=== PATIENT | female | born 1985 | race Caucasian/White ===

== ENCOUNTER 2018-09-25 23:54 | Emergency (ER) | payer MEDICAID ==
[~2018-09-25] VITALS: Ht 162.6 cm; Wt 65.0 kg
[~2018-09-25 23:54] MED LIST: NAPR-1193 PO
[2018-09-26] MEDS ORDERED: IBUPROFEN 400 MG TABLET PO ONE (01:00)
[2018-09-26] MEDS ORDERED: PERTUSS(ACELL),DIPH,TET VAC/PF 0.5 ML VIAL IM ONE (01:00)
[2018-09-26 01:15] VITALS: BP 133/69
== END 2018-09-26 01:23 | disposition home or self-care (01) ==
LOC: EMS 23:56
DX: S61.245A Puncture wound with foreign body of left ring finger without damage to nail, initial encounter (principal); J45.909 Unspecified asthma, uncomplicated; Z23 Encounter for immunization; W27.8XXA Contact with other nonpowered hand tool, initial encounter; Y93.E9 Activity, other interior property and clothing maintenance; Y92.89 Other specified places as the place of occurrence of the external cause; Y99.8 Other external cause status
CPT/HCPCS: 90471; 90715

== ENCOUNTER 2018-10-30 01:51 | Inpatient (IN) | payer MEDICAID ==
[~2018-10-30] VITALS: Ht 157.5 cm; Wt 65.0 kg
[2018-10-30 03:47] LABS: APPEARANCE,URINE CLOUDY (CLEAR); BILIRUBIN,URINE NEGATIVE (NEGATIVE); GLUCOSE, URINE (UA) NEGATIVE (NEGATIVE); KETONES,URINE NEGATIVE (NEGATIVE); LEUKOCYTE ESTERASE ,URINE LARGE (NEGATIVE); NITRATE,URINE NEGATIVE (NEGATIVE); OCCULT BLOOD,URINE NEGATIVE (NEGATIVE); PH,URINE 7.5 (5.0-8.0); PROTEIN,URINE NEGATIVE (NEGATIVE); UROBILINOGEN,URINE 0.2 mg/dL (<=1.0)
[2018-10-30 03:56] LABS: BACTERIA,URINE Few /HPF (None Seen); SQUAMOUS EPITHELIAL CELL,UR Many /LPF (None Seen)
[2018-10-30 04:01] LABS: BASOPHILS % (AUTO) 0.8 % (0.0-2.0); EOSINOPHILS % (AUTO) 2.2 % (1.0-6.0); HEMATOCRIT 42.4 % (36-46); HEMOGLOBIN 14.3 g/dL (12.0-16.0); LYMPHOCYTES # (AUTO) 2.9 K/uL (1.0-4.8); LYMPHOCYTES % (AUTO) 26.7 % (22.0-44.0); MEAN CORPUSCULAR HEMOGLOBIN 31.7 pg (26.0-34.0); MEAN CORPUSCULAR HGB CONC 33.6 G/dL (31.0-37.0); MEAN CORPUSCULAR VOLUME 94 fL (80-100); MONOCYTES # (AUTO) 0.6 K/uL (0.1-1.0); MONOCYTES % (AUTO) 5.4 % (2.0-9.0); NEUTROPHILS % (AUTO) 64.9 % (40.0-70.0); PLATELET COUNT (AUTO) 256 K/uL (150-450); RED CELL DISTRIBUTION WIDTH 13.3 % (11.5-14.5)
[2018-10-30 04:06] LABS: ANION GAP 9 mmol/L (8-16); CALCIUM, TOTAL 9.4 mg/dL (8.8-10.5); CARBON DIOXIDE 27 mmol/L (22-29); CHLORIDE 102 mmol/L (98-107); CREATININE 0.91 mg/dL (0.60-1.30); GLOMERULAR FILTR. RATE CALC > 60 mL/min (>60); GLUCOSE,RANDOM 124 mg/dL (70-110); POTASSIUM 3.9 mmol/L (3.5-5.1); SODIUM SERUM 138 mmol/L (136-145); UREA NITROGEN, BLOOD 11 mg/dL (7-18)
[2018-10-30 04:21] LABS: ALANINE AMINOTRANSFERASE 97 U/L (12-78); ALBUMIN 3.6 g/dL (3.4-5.0); ALKALINE PHOSPHATASE 103 U/L (46-116); ASPARTATE AMINOTRANSFERASE 46 U/L (15-37); BILIRUBIN,TOTAL 0.2 mg/dL (0.1-1.0); HCG,QUANTITATIVE < 1 mIU/mL (0-6); TOTAL PROTEIN, SERUM 7.5 g/dL (6.4-8.2)
[2018-10-30] MEDS ORDERED: SODIUM CHLORIDE 0.9% 100 ML ONE (04:28)
[2018-10-30] MEDS ORDERED: IOVERSOL 350 MG/ML 100 ML VIAL ONE (04:28)
[2018-10-30] MEDS ORDERED: ONDANSETRON HCL 4 MG/2 ML VIAL IVP ONE ×2 (04:30→05:45)
[2018-10-30] MEDS ORDERED: BARIUM SULFATE 0.1% SUSPENSION 450 ML BOTTLE PO ONE (04:30)
[2018-10-30] MEDS ORDERED: MORPHINE SULFATE 4 MG/ML SYRINGE IVP ONE (04:30)
[2018-10-30] MEDS ORDERED: HYDROmorphone 2 MG/ML SYRINGE IVP ONE ×2 (05:45→06:15)
[2018-10-30] MEDS ORDERED: LORazepam 2 MG/ML VIAL IVP ONE (06:30)
[2018-10-30] MEDS ORDERED: CefTRIAXone 1 GM/DEXTROSE 50 ML IV ONE (06:30)
[2018-10-30] MEDS ORDERED: TETRACAINE/BENZOCAINE/BUTAMBEN 32 GM GEL TP ONE (06:30)
[2018-10-30] MEDS ORDERED: ACETAMINOPHEN 325 MG TABLET PO PRN (07:45)
[2018-10-30] MEDS ORDERED: POTASSIUM CHL 20 MEQ/D5-0.45NS 1,000 ML IV ONE (07:45)
[2018-10-30] MEDS ORDERED: HYDROmorphone 2 MG/ML SYRINGE IVP PRN (07:45)
[2018-10-30] MEDS ORDERED: 0.9% SODIUM CHLORIDE 10 ML SYRINGE IVP PRN ×2 (07:45→12:00)
[2018-10-30] MEDS ORDERED: ONDANSETRON HCL 4 MG/2 ML VIAL IVP PRN (07:45)
[2018-10-30] MEDS ORDERED: SODIUM PHOS/SODIUM BIPHOS 133 ML ENEMA PR ONE (09:00)
[2018-10-30] MEDS ORDERED: LORazepam 2 MG/ML VIAL IM PRN (12:00)
[2018-10-30 12:16] VITALS: BP 100/57
[2018-10-30 16:10] VITALS: BP 109/54
[2018-10-30] MEDS: DEXTROSE 5%-0.45% SODIUM CHL 1,000 ML IV SCH (18:20)
[2018-10-30 19:38] VITALS: BP 106/61
[2018-10-30 23:10] VITALS: BP 114/57
[2018-10-31] MEDS: HYDROmorphone 2 MG/ML SYRINGE IVP PRN ×3 (00:31→19:07)
[2018-10-31 04:53] VITALS: BP 99/56
[2018-10-31] MEDS: DEXTROSE 5%-0.45% SODIUM CHL 1,000 ML IV SCH ×2 (05:02→20:00)
[2018-10-31] MEDS: CefTRIAXone 1 GM/DEXTROSE 50 ML IV SCH (05:05)
[2018-10-31 06:19] LABS: BASOPHILS % (AUTO) 0.4 % (0.0-2.0); EOSINOPHILS % (AUTO) 1.8 % (1.0-6.0); HEMATOCRIT 38.9 % (36-46); LYMPHOCYTES # (AUTO) 2.2 K/uL (1.0-4.8); LYMPHOCYTES % (AUTO) 25.7 % (22.0-44.0); MEAN CORPUSCULAR HEMOGLOBIN 31.6 pg (26.0-34.0); MEAN CORPUSCULAR HGB CONC 33.4 G/dL (31.0-37.0); MEAN CORPUSCULAR VOLUME 95 fL (80-100); MONOCYTES # (AUTO) 0.7 K/uL (0.1-1.0); MONOCYTES % (AUTO) 7.5 % (2.0-9.0); NEUTROPHILS # (AUTO) 5.6 K/uL (1.8-7.7); NEUTROPHILS % (AUTO) 64.6 % (40.0-70.0); PLATELET COUNT (AUTO) 232 K/uL (150-450); RED BLOOD CELL COUNT(AUTO) 4.11 MIL/uL (4.00-5.20); RED CELL DISTRIBUTION WIDTH 12.9 % (11.5-14.5)
[2018-10-31 06:21] LABS: ANION GAP 6 mmol/L (8-16); CALCIUM, TOTAL 8.6 mg/dL (8.8-10.5); CARBON DIOXIDE 29 mmol/L (22-29); CHLORIDE 102 mmol/L (98-107); CREATININE 0.84 mg/dL (0.60-1.30); GLOMERULAR FILTR. RATE CALC > 60 mL/min (>60); GLUCOSE,RANDOM 93 mg/dL (70-110); POTASSIUM 3.6 mmol/L (3.5-5.1); SODIUM SERUM 137 mmol/L (136-145); UREA NITROGEN, BLOOD 6 mg/dL (7-18)
[2018-10-31 07:58] VITALS: BP 91/51
[2018-10-31] MEDS ORDERED: EPINEPHrine 1:10,000 [1 MG/10 ML] SYRINGE ONE (09:41)
[2018-10-31] MEDS ORDERED: SODIUM CHLORIDE 0.9% 1,000 ML IV ONE (09:41)
[2018-10-31] MEDS ORDERED: PANTOPRAZOLE SODIUM 40 MG/VIAL IVP SCH (12:00)
[2018-10-31 12:01] VITALS: BP 102/50
[2018-10-31] MEDS: FAMOTIDINE 10 MG/ML 2 ML VIAL IVP SCH (12:55)
[2018-10-31] MEDS: POLYETHYLENE GLYCOL 3350 17 GM PACKET PO SCH ×2 (12:55→20:14)
[2018-10-31] MEDS: ONDANSETRON HCL 4 MG/2 ML VIAL IVP PRN (12:57)
[2018-10-31 15:43] VITALS: BP 95/52
[2018-10-31 19:20] VITALS: BP 100/55
[2018-10-31 23:04] VITALS: BP 95/50
[2018-11-01] MEDS: HYDROmorphone 2 MG/ML SYRINGE IVP PRN ×2 (01:02→12:17)
[2018-11-01] MEDS: DEXTROSE 5%-0.45% SODIUM CHL 1,000 ML IV SCH (01:30)
[2018-11-01 04:21] VITALS: BP 120/58
[2018-11-01] MEDS: CefTRIAXone 1 GM/DEXTROSE 50 ML IV SCH (05:46)
[2018-11-01 07:35] VITALS: BP 100/63
[2018-11-01] MEDS ORDERED: BARIUM SULFATE 0.1% SUSPENSION 450 ML BOTTLE ONE (07:57)
[2018-11-01] MEDS ORDERED: GLUCAGON,HUMAN RECOMBINANT 1 MG VIAL IVP ONE (08:45)
[2018-11-01] MEDS: POLYETHYLENE GLYCOL 3350 17 GM PACKET PO SCH ×2 (09:00→20:10)
[2018-11-01] MEDS ORDERED: IOVERSOL 350 MG/ML 150 ML VIAL ONE (09:43)
[2018-11-01] MEDS ORDERED: SODIUM CHLORIDE 0.9% 100 ML ONE (09:43)
[2018-11-01 11:20] VITALS: BP 103/55
[2018-11-01 15:39] VITALS: BP 118/68
[2018-11-01] MEDS: FAMOTIDINE 10 MG/ML 2 ML VIAL IVP SCH (16:34)
[2018-11-01 19:55] VITALS: BP 101/61
[2018-11-01 23:15] VITALS: BP 95/49
[2018-11-02] MEDS ORDERED: LIDOCAINE/PF 2% 5 ML VIAL IM ONE (00:28)
[2018-11-02] MEDS ORDERED: PROPOFOL 1% 20 ML VIAL IVP ONE (00:28)
[2018-11-02] MEDS: HYDROmorphone 2 MG/ML SYRINGE IVP PRN ×2 (03:37→12:08)
[2018-11-02 04:51] VITALS: BP 111/76
[2018-11-02] MEDS: CefTRIAXone 1 GM/DEXTROSE 50 ML IV SCH (05:42)
[2018-11-02] MEDS: ONDANSETRON HCL 4 MG/2 ML VIAL IVP PRN (05:49)
[2018-11-02] MEDS: FAMOTIDINE 10 MG/ML 2 ML VIAL IVP SCH (08:03)
[2018-11-02] MEDS: POLYETHYLENE GLYCOL 3350 17 GM PACKET PO SCH (08:03)
[2018-11-02 08:12] VITALS: BP 94/57
[2018-11-02 12:14] VITALS: BP 96/52
[2018-11-02] MEDS ORDERED: SODIUM CHLORIDE 0.9% 500 ML IV ONE (12:14)
[2018-11-02] MEDS ORDERED: FAMO20 PO (17:40)
[2018-11-02] MEDS ORDERED: POLY238P2 PO (17:41)
== END 2018-11-02 18:52 | disposition home or self-care (01) | DRG 241 ==
LOC: EMS 01:52 → 4E 08:04
PROVIDERS: ADMIT Internal Medicine; ATTEND Internal Medicine
PROC: 0DB68ZX Excision of Stomach, Via Natural or Artificial Opening Endoscopic, Diagnostic (ICD-10-PCS; 2018-10-31)
PROC: 0DB98ZX Excision of Duodenum, Via Natural or Artificial Opening Endoscopic, Diagnostic (ICD-10-PCS; principal; 2018-10-31 10:30)
DX: K29.60 Other gastritis without bleeding (principal); K56.609 Unspecified intestinal obstruction, unspecified as to partial versus complete obstruction; K31.84 Gastroparesis; A59.01 Trichomonal vulvovaginitis; J45.909 Unspecified asthma, uncomplicated; F32.9 Major depressive disorder, single episode, unspecified; K44.9 Diaphragmatic hernia without obstruction or gangrene; K52.9 Noninfective gastroenteritis and colitis, unspecified; N39.0 Urinary tract infection, site not specified
CPT/HCPCS: 74177; 87086; 88305; 88312; 88313; G0378; J0171; J0696; J1170; J1610; J2060; J2270; J2405; J2704; J3480; J3490; J7030; J7040; J7050

== ENCOUNTER 2018-11-03 03:35 | Emergency (ER) | payer MEDICAID ==
[~2018-11-03] VITALS: Ht 157.5 cm; Wt 75.0 kg
[~2018-11-03 03:35] MED LIST changes: +FAMO20 PO; -NAPR-1193 PO; +POLY238P2 PO
[2018-11-03 04:26] VITALS: BP 110/64
[2018-11-03] MEDS ORDERED: DiphenhydrAMINE HCL 25 MG CAPSULE PO ONE (04:30)
== END 2018-11-03 04:55 | disposition home or self-care (01) ==
LOC: EMS 03:35
DX: L25.9 Unspecified contact dermatitis, unspecified cause (principal); J45.909 Unspecified asthma, uncomplicated; Z98.51 Tubal ligation status; Z90.49 Acquired absence of other specified parts of digestive tract

== ENCOUNTER 2019-01-17 22:43 | Emergency (ER) | payer MEDICAID ==
[~2019-01-17] VITALS: Ht 165.1 cm; Wt 68.2 kg
[2019-01-18 00:56] VITALS: BP 121/73
[2019-01-18] MEDS ORDERED: KETOROLAC TROMETHAMINE 60 MG/2 ML VIAL IM ONE (01:15)
== END 2019-01-18 01:22 | disposition home or self-care (01) ==
LOC: EMS 22:44
DX: S92.425A Nondisplaced fracture of distal phalanx of left great toe, initial encounter for closed fracture (principal); W18.40XA Slipping, tripping and stumbling without falling, unspecified, initial encounter; Y93.02 Activity, running; Y92.89 Other specified places as the place of occurrence of the external cause; Y99.8 Other external cause status
CPT/HCPCS: 73630; 81025; 96372; 99283; J1885

== ENCOUNTER 2019-04-21 14:50 | Emergency (ER) | payer MEDICAID ==
[~2019-04-21] VITALS: Ht 165.1 cm; Wt 70.0 kg
[2019-04-21] MEDS ORDERED: SODIUM CHLORIDE 0.9% 2,100 ML IV ONE (16:40)
[2019-04-21] MEDS ORDERED: 0.9% SODIUM CHLORIDE 10 ML SYRINGE IVP PRN (16:45)
[2019-04-21] MEDS ORDERED: ACETAMINOPHEN 500 MG TABLET PO ONE (16:45)
[2019-04-21 17:10] LABS: BASOPHILS % (AUTO) 0.4 % (0.0-2.0); EOSINOPHILS % (AUTO) 0.2 % (1.0-6.0); HEMATOCRIT 39.8 % (36-46); HEMOGLOBIN 13.5 g/dL (12.0-16.0); LYMPHOCYTES # (AUTO) 0.5 K/uL (1.0-4.8); LYMPHOCYTES % (AUTO) 8.2 % (22.0-44.0); MEAN CORPUSCULAR HEMOGLOBIN 31.8 pg (26.0-34.0); MEAN CORPUSCULAR VOLUME 93 fL (80-100); MONOCYTES # (AUTO) 0.6 K/uL (0.1-1.0); MONOCYTES % (AUTO) 9.3 % (2.0-9.0); NEUTROPHILS # (AUTO) 5.1 K/uL (1.8-7.7); NEUTROPHILS % (AUTO) 81.9 % (40.0-70.0); PLATELET COUNT (AUTO) 232 K/uL (150-450); RED BLOOD CELL COUNT(AUTO) 4.26 MIL/uL (4.00-5.20); RED CELL DISTRIBUTION WIDTH 13.1 % (11.5-14.5)
[2019-04-21 17:11] LABS: APPEARANCE,URINE CLEAR (CLEAR); BILIRUBIN,URINE NEGATIVE (NEGATIVE); GLUCOSE, URINE (UA) NEGATIVE (NEGATIVE); KETONES,URINE NEGATIVE (NEGATIVE); LEUKOCYTE ESTERASE ,URINE NEGATIVE (NEGATIVE); NITRATE,URINE NEGATIVE (NEGATIVE); OCCULT BLOOD,URINE NEGATIVE (NEGATIVE); PH,URINE 7.5 (5.0-8.0); PROTEIN,URINE NEGATIVE (NEGATIVE); UROBILINOGEN,URINE 0.2 mg/dL (<=1.0)
[2019-04-21 17:23] LABS: ANION GAP 12 mmol/L (8-16); CALCIUM, TOTAL 8.9 mg/dL (8.8-10.5); CARBON DIOXIDE 24 mmol/L (22-29); CHLORIDE 100 mmol/L (98-107); CREATININE 0.93 mg/dL (0.60-1.30); GLOMERULAR FILTR. RATE CALC > 60 mL/min (>60); GLUCOSE,RANDOM 96 mg/dL (70-110); POTASSIUM 3.9 mmol/L (3.5-5.1); SODIUM SERUM 136 mmol/L (136-145); UREA NITROGEN, BLOOD 8 mg/dL (7-18)
[2019-04-21 17:29] LABS: ALANINE AMINOTRANSFERASE 80 U/L (12-78); ALBUMIN 3.8 g/dL (3.4-5.0); ALKALINE PHOSPHATASE 109 U/L (46-116); ASPARTATE AMINOTRANSFERASE 55 U/L (15-37); BILIRUBIN,TOTAL 0.4 mg/dL (0.1-1.0); TOTAL PROTEIN, SERUM 7.5 g/dL (6.4-8.2)
[2019-04-21 17:30] LABS: LACTIC ACID 1.9 mmol/L (0.4-2.0)
[2019-04-21] MEDS ORDERED: KETOROLAC TROMETHAMINE 30 MG/ML VIAL IVP ONE (18:00)
[2019-04-21 18:59] LABS: INFLUENZA TYPE A NEGATIVE FOR TYPE A (NEGATIVE); INFLUENZA TYPE B POSITIVE FOR TYPE B (NEGATIVE)
[2019-04-21] MEDS ORDERED: OSELTAMIVIR PHOSPHATE 75 MG CAPSULE PO ONE (19:15)
[2019-04-21 19:32] VITALS: BP 100/53
== END 2019-04-21 19:54 | disposition home or self-care (01) ==
LOC: EMS 14:51
DX: J10.1 Influenza due to other identified influenza virus with other respiratory manifestations (principal); F41.9 Anxiety disorder, unspecified; J45.909 Unspecified asthma, uncomplicated; Z90.89 Acquired absence of other organs
CPT/HCPCS: 36415; 71045; 80053; 81003; 81025; 83605; 85025; 85610; 87040; 87804; 93005; 96374; 99285; J1885; J7030

== ENCOUNTER 2021-02-01 05:19 | Emergency (ER) | payer MEDICAID ==
[~2021-02-01] VITALS: Ht 157.5 cm; Wt 63.6 kg
[2021-02-01 05:30] VITALS: BP 131/62
[2021-02-01] MEDS ORDERED: OMEP20 PO (05:34)
== END 2021-02-01 06:44 | disposition left against medical advice (07) ==
LOC: EMS 05:20
DX: R10.9 Unspecified abdominal pain (principal); Z53.21 Procedure and treatment not carried out due to patient leaving prior to being seen by health care provider

== ENCOUNTER 2021-04-15 01:43 | Emergency (ER) | payer MEDICAID ==
[~2021-04-15] VITALS: Ht 152.4 cm; Wt 72.4 kg
[~2021-04-15 01:43] MED LIST changes: -FAMO20 PO; +OMEP20 PO; -POLY238P2 PO
[2021-04-15 02:01] LABS: APPEARANCE,URINE CLEAR (CLEAR); BILIRUBIN,URINE NEGATIVE (NEGATIVE); GLUCOSE, URINE (UA) NEGATIVE (NEGATIVE); KETONES,URINE NEGATIVE (NEGATIVE); LEUKOCYTE ESTERASE ,URINE NEGATIVE (NEGATIVE); NITRATE,URINE NEGATIVE (NEGATIVE); OCCULT BLOOD,URINE NEGATIVE (NEGATIVE); PROTEIN,URINE NEGATIVE (NEGATIVE); UROBILINOGEN,URINE 0.2 mg/dL (<=1.0)
[2021-04-15 02:05] LABS: BACTERIA,URINE None Seen /HPF (None Seen); RBC,URINE None Seen /HPF (0-2); SQUAMOUS EPITHELIAL CELL,UR Few /LPF (None Seen); WBC,URINE 0-2 /HPF (0-5)
[2021-04-15 02:49] LABS: BASOPHILS % (AUTO) 0.5 % (0.0-2.0); HEMATOCRIT 40.8 % (36-46); HEMOGLOBIN 14.3 g/dL (12.0-16.0); LYMPHOCYTES # (AUTO) 2.9 K/uL (1.0-4.8); MEAN CORPUSCULAR HEMOGLOBIN 32.2 pg (26.0-34.0); MEAN CORPUSCULAR HGB CONC 34.9 G/dL (31.0-37.0); MEAN CORPUSCULAR VOLUME 92 fL (80-100); MONOCYTES # (AUTO) 0.7 K/uL (0.1-1.0); MONOCYTES % (AUTO) 7.6 % (2.0-9.0); NEUTROPHILS # (AUTO) 5.3 K/uL (1.8-7.7); NEUTROPHILS % (AUTO) 57.9 % (40.0-70.0); PLATELET COUNT (AUTO) 285 K/uL (150-450); RED BLOOD CELL COUNT(AUTO) 4.43 MIL/uL (4.00-5.20); RED CELL DISTRIBUTION WIDTH 13.2 % (11.5-14.5)
[2021-04-15 03:08] LABS: ANION GAP 8 mmol/L (8-16); CALCIUM, TOTAL 9.2 mg/dL (8.8-10.5); CARBON DIOXIDE 29 mmol/L (22-29); CHLORIDE 106 mmol/L (98-107); CREATININE 0.87 mg/dL (0.60-1.30); GLOMERULAR FILTR. RATE CALC > 60 mL/min (>60); GLUCOSE,RANDOM 108 mg/dL (70-110); POTASSIUM 4.4 mmol/L (3.5-5.1); SODIUM SERUM 143 mmol/L (136-145); UREA NITROGEN, BLOOD 15 mg/dL (7-18)
[2021-04-15 03:19] LABS: ALANINE AMINOTRANSFERASE 53 U/L (12-78); ALBUMIN 3.7 g/dL (3.4-5.0); ALKALINE PHOSPHATASE 99 U/L (46-116); ASPARTATE AMINOTRANSFERASE 17 U/L (15-37); BILIRUBIN,TOTAL 0.2 mg/dL (0.1-1.0); HCG,QUANTITATIVE < 1 mIU/mL (0-6); LIPASE 120 U/L (73-393); TOTAL PROTEIN, SERUM 7.7 g/dL (6.4-8.2)
[2021-04-15] MEDS ORDERED: KETOROLAC TROMETHAMINE 30 MG/ML VIAL IM ONE (03:45)
[2021-04-15 06:30] VITALS: BP 118/67
== END 2021-04-15 06:30 | disposition home or self-care (01) ==
LOC: EMS 01:47
DX: N20.0 Calculus of kidney (principal); J45.909 Unspecified asthma, uncomplicated; Z90.89 Acquired absence of other organs
CPT/HCPCS: 36415; 74176; 80053; 81001; 83690; 84702; 85025; 96372; 99284; J1885

== ENCOUNTER 2021-05-23 01:15 | Emergency (ER) | payer MEDICAID ==
[~2021-05-23] VITALS: Ht 157.5 cm; Wt 72.7 kg
[2021-05-23 02:05] VITALS: BP 122/78
== END 2021-05-23 03:21 | disposition home or self-care (01) ==
LOC: EMS 01:16
DX: H69.91 Unspecified Eustachian tube disorder, right ear (principal); J02.9 Acute pharyngitis, unspecified
CPT/HCPCS: 99282; Z7502

== ENCOUNTER 2022-07-23 17:35 | Emergency (ER) | payer MEDICAID ==
[~2022-07-23] VITALS: Ht 162.6 cm; Wt 61.4 kg
[2022-07-23 17:37] VITALS: BP 116/66
== END 2022-07-23 19:59 | disposition left against medical advice (07) ==
LOC: EMS 17:48
DX: H57.12 Ocular pain, left eye (principal); R42 Dizziness and giddiness; Z53.21 Procedure and treatment not carried out due to patient leaving prior to being seen by health care provider
CPT/HCPCS: 99281; Z7502

== ENCOUNTER 2023-06-25 00:32 | Emergency (ER) | payer MEDICAID, OTHER ==
[~2023-06-25] VITALS: Ht 162.6 cm; Wt 77.3 kg
[~2023-06-25 00:32] MED LIST changes: -OMEP20 PO; +ONDA-104 PO
[2023-06-25 00:57] VITALS: TEMP 98.4
[2023-06-25] MEDS: PredniSONE 20 MG TABLET PO ONE (02:47)
[2023-06-25] MEDS: ALBUTEROL SULFATE 2.5 MG/0.5 ML NEB SOLUTION NEB ONE ×2 (03:13→04:50)
[2023-06-25] MEDS: IPRATROPIUM BROMIDE 0.5 MG/2.5 ML NEB SOLUTION NEB ONE ×2 (03:13→04:50)
[2023-06-25 03:15] VITALS: PULSE 70; PULSE 71; RESP 17; O2SAT 98
[2023-06-25 03:30] VITALS: PULSE 74; RESP 18; O2SAT 100
[2023-06-25] MEDS: ALBUTEROL SULFATE HFA 90 MCG/PUFF 8 GM INHALER IH ONE (04:02)
[2023-06-25 04:45] VITALS: PULSE 78; RESP 16; O2SAT 98
[2023-06-25] MEDS ORDERED: PRED-554 PO (04:56)
[2023-06-25] MEDS ORDERED: AZIT250T9 PO (04:56)
[2023-06-25 05:06] VITALS: PULSE 74; RESP 16; O2SAT 100
[2023-06-25 05:15] VITALS: BP 118/72; PULSE 70; RESP 15
== END 2023-06-25 05:16 | disposition home or self-care (01) ==
LOC: EMS 00:33
DX: J45.901 Unspecified asthma with (acute) exacerbation (principal); Z90.49 Acquired absence of other specified parts of digestive tract
CPT/HCPCS: 99285; 71045; 94640; J7512; J3535; J7613

== ENCOUNTER 2024-12-14 07:40 | Emergency (ER) | payer MEDICAID, OTHER ==
[~2024-12-14] VITALS: Ht 157.5 cm; Wt 72.7 kg
[~2024-12-14 07:40] MED LIST changes: +PRED-554 PO
[2024-12-14] MEDS: ACETAMINOPHEN 500 MG TABLET PO ONE (07:55)
[2024-12-14] MEDS: LIDOCAINE 5% TRANSDERMAL PATCH TD ONE (07:55)
[2024-12-14] MEDS: KETOROLAC TROMETHAMINE 30 MG/ML VIAL IM ONE (07:55)
[2024-12-14] MEDS ORDERED: IBUP-1492 PO (08:21)
[2024-12-14] MEDS ORDERED: LIDO-57 TP (08:21)
[2024-12-14] MEDS ORDERED: ACET-3385 PO (08:21)
[2024-12-14 09:23] VITALS: BP 111/68; PULSE 66; RESP 18; TEMP 98.6; O2SAT 99
== END 2024-12-14 09:24 | disposition home or self-care (01) ==
LOC: EMS 07:49
DX: S16.1XXA Strain of muscle, fascia and tendon at neck level, initial encounter (principal); J45.909 Unspecified asthma, uncomplicated; Z87.19 Personal history of other diseases of the digestive system; Z90.49 Acquired absence of other specified parts of digestive tract; X50.9XXA Other and unspecified overexertion or strenuous movements or postures, initial encounter; Y93.89 Activity, other specified; Y92.89 Other specified places as the place of occurrence of the external cause; Y99.8 Other external cause status
CPT/HCPCS: 99283; 29105; 73030; 96372; J1885

== ENCOUNTER 2025-01-20 13:28 | Emergency (ER) | payer MEDICAID ==
[~2025-01-20] VITALS: Ht 160 cm; Wt 72.7 kg
[~2025-01-20 13:28] MED LIST changes: +ACET-3385 PO; +IBUP-1492 PO; +LIDO-57 TP; -ONDA-104 PO; -PRED-554 PO
[2025-01-20 13:42] VITALS: TEMP 97.5
[2025-01-20 14:38] LABS: APPEARANCE,URINE CLEAR (CLEAR); GLUCOSE, URINE (UA) NEGATIVE (NEGATIVE); LEUKOCYTE ESTERASE ,URINE LARGE (NEGATIVE); NITRATE,URINE NEGATIVE (NEGATIVE); OCCULT BLOOD,URINE NEGATIVE (NEGATIVE); SPECIFIC GRAVITIY, URINE 1.025 (1.003-1.030)
[2025-01-20 14:50] LABS: SQUAMOUS EPITHELIAL CELL,UR Moderate /LPF (None Seen)
[2025-01-20 15:13] LABS: PLATELET COUNT (AUTO) 255 K/uL (150-450); RED BLOOD CELL COUNT(AUTO) 4.31 MIL/uL (4.00-5.20); RED CELL DISTRIBUTION WIDTH 13.7 % (11.5-14.5); WHITE BLOOD COUNT (AUTO) 9.4 K/uL (4.5-11.0)
[2025-01-20 15:18] LABS: CALCIUM, TOTAL 9.0 mg/dL (8.8-10.5); CREATININE 0.67 mg/dL (0.60-1.30); GLOMERULAR FILTR. RATE CALC > 60 mL/min (>60); GLUCOSE,RANDOM 98 mg/dL (70-110); SODIUM SERUM 136 mmol/L (136-145); UREA NITROGEN, BLOOD 12 mg/dL (7-18)
[2025-01-20 15:25] LABS: ASPARTATE AMINOTRANSFERASE 41.0 U/L (15-37); TOTAL PROTEIN, SERUM 7.3 g/dL (6.4-8.2)
[2025-01-20 15:30] LABS: HCG,QUANTITATIVE < 1 mIU/mL (0-6)
[2025-01-20] MEDS ORDERED: SODIUM CHLORIDE 0.9% 100 ML ONE (15:34)
[2025-01-20] MEDS ORDERED: IOHEXOL 350 MG/ML 100 ML VIAL ONE (15:34)
[2025-01-20] MEDS ORDERED: 0.9% SODIUM CHLORIDE 10 ML SYRINGE IVP ONE (15:34)
[2025-01-20] MEDS: MORPHINE SULFATE 2 MG/ML SYRINGE IVP ONE (15:41)
[2025-01-20] MEDS: MAG HYDROX/ALUMINUM HYD/SIMETH 30 ML SUSPENSION UDCUP PO ONE (15:41)
[2025-01-20] MEDS: ONDANSETRON HCL 4 MG/2 ML VIAL IVP ONE (15:41)
[2025-01-20] MEDS: SODIUM CHLORIDE 0.9% 1,000 ML IV ONE ×2 (15:41→16:35)
[2025-01-20] MEDS: FAMOTIDINE 20 MG/2 ML VIAL IVP ONE ×2 (15:51→17:13)
[2025-01-20] MEDS: CefTRIAXone 1 GM/DEXTROSE 50 ML IV ONE (15:51)
[2025-01-20] MEDS: EPINEPHrine 1:1,000 [1 MG/ML] VIAL IM ONE (16:35)
[2025-01-20] MEDS ORDERED: DOCU-385 PO (18:42)
[2025-01-20] MEDS ORDERED: CEPH-558 PO (18:42)
[2025-01-20] MEDS: SODIUM PHOSPHATE,MONO-DIBASIC 133 ML ENEMA PR ONE (18:45)
[2025-01-20] MEDS: DOCUSATE SODIUM 100 MG CAPSULE PO ONE (18:45)
[2025-01-20 22:28] VITALS: BP 107/65; PULSE 80; RESP 18; O2SAT 99
[2025-01-20] MEDS ORDERED: ONDA-104 PO (22:30)
== END 2025-01-20 22:38 | disposition home or self-care (01) ==
LOC: EMS 13:35
DX: N12 Tubulo-interstitial nephritis, not specified as acute or chronic (principal); K59.00 Constipation, unspecified; R10.2 Pelvic and perineal pain; J45.909 Unspecified asthma, uncomplicated; Z87.19 Personal history of other diseases of the digestive system; Z90.49 Acquired absence of other specified parts of digestive tract
CPT/HCPCS: 99285; 74177; 96375; 96365; 96361; 80048; 80076; 81001; 83690; 84702; 85025; 87086; 87147; 36415; 93005; J2919; Q9967; J0696; J1200; J0169; J3490; J2270; J2405; J7050

== ENCOUNTER 2025-03-30 01:55 | Emergency (ER) | payer MEDICAID, OTHER ==
[~2025-03-30] VITALS: Ht 154.9 cm; Wt 75.0 kg
[~2025-03-30 01:55] MED LIST changes: +CEPH-558 PO; +DOCU-385 PO; +ONDA-104 PO
[2025-03-30 02:04] VITALS: TEMP 98.1
[2025-03-30] MEDS: METOCLOPRAMIDE HCL 10 MG TABLET PO ONE (02:35)
[2025-03-30] MEDS: ACETAMINOPHEN 500 MG TABLET PO ONE (02:35)
[2025-03-30] MEDS: IBUPROFEN 400 MG TABLET PO ONE (02:35)
[2025-03-30] MEDS ORDERED: METO5TAB95 PO (04:56)
[2025-03-30] MEDS ORDERED: METH-812 PO (04:56)
[2025-03-30 05:07] VITALS: BP 128/82; PULSE 80; RESP 16; O2SAT 97
== END 2025-03-30 05:32 | disposition home or self-care (01) ==
LOC: EMS 02:27
DX: G43.909 Migraine, unspecified, not intractable, without status migrainosus (principal); M62.838 Other muscle spasm; J45.909 Unspecified asthma, uncomplicated; Z87.19 Personal history of other diseases of the digestive system; Z90.49 Acquired absence of other specified parts of digestive tract; Z79.899 Other long term (current) drug therapy
CPT/HCPCS: 99284; J8540; Z7502; Z7610